=== PATIENT | female | born 1985 | race Caucasian/White ===

== ENCOUNTER → 2016-08-30 | Outpatient (CLI) | payer BC ==
--- NOTE | 2016-08-30 09:31 | US ---
EXAMINATION TYPE: US abdomen complete DATE OF EXAM: 08/30/2016 7:41 AM COMPARISON: NONE CLINICAL HISTORY: R10.13 ABD PAIN RLQ. Possible hernia noted RLQ per patient as she feels palpable pascual mp RLQ which protrudes outward at all times. EXAM MEASUREMENTS: Liver Length: 16.0 cm Gallbladder Wall: 0.2 cm CBD: 0.2 cm Spleen: 10.5 cm Right Kidney: 11.7 x 5.5 x 4.6 cm Left Kidney: 12.2 x 6.1 x 5.4 cm Pancreas: hyperechoic Liver: heterogeneous Gallbladder: full of shadowing stones Evidence for sonographic Teresa's sign: yes CBD: wnl Spleen: wnl Right Kidney: wnl Left Kidney: wnl Upper IVC: wnl Abd Aorta: wnl RLQ: at patient's c/o pain is interrupted fascial line with possible bowel noted anterior to fascial line when evaluated in supine and upright position. RLQ area was also compared to left side where fas inna appears uninterrupted on image. IMPRESSION: 1. Suspected herniation anterior wall right inguinal region containing a loop of bowel. 2. Gallstones. Correlate for acute cholecystitis. A positive Teresa sign was present during this exam .
== END | disposition home or self-care (01) ==
LOC: RADUSWWP 06:52
PROVIDERS: ATTEND Family Medicine
DX: K80.20 Calculus of gallbladder without cholecystitis without obstruction (principal)
CPT/HCPCS: 76700

== ENCOUNTER → 2020-04-13 | Outpatient (CLI) | payer BC ==
[2020-04-13 11:28] LABS: Basophils % (A) 0 %; Eosinophils # (A) 0.2 k/uL (0-0.7); Eosinophils % (A) 3 %; HGB 14.4 gm/dL (11.4-16.0); Lymphocytes # (A) 2.2 k/uL (1.0-4.8); Lymphocytes % (A) 34 %; MCH 29.9 pg (25.0-35.0); MCHC 31.4 g/dL (31.0-37.0); Mean Platelet Volume 7.7; Monocytes # (A) 0.4 k/uL (0-1.0); Monocytes % (A) 7 %; Neutrophils # (A) 3.6 k/uL (1.3-7.7); Neutrophils % (A) 54 %; Platelet Count 245 k/uL (150-450); RBC 4.84 m/uL (3.80-5.40); WBC 6.6 k/uL (3.8-10.6)
[2020-04-13 11:39] LABS: African American GFR (CKD) >90 (>60 ml/min/1.73 sqM); Anion Gap 4 mmol/L; Blood Urea Nitrogen 15 mg/dL (7-17); Carbon Dioxide 29 mmol/L (22-30); Chloride 108 mmol/L (98-107); Glucose 92 mg/dL (74-99); Non-African American GFR(CKD) >90 (>60 ml/min/1.73 sqM); Potassium 4.8 mmol/L (3.5-5.1); Sodium 141 mmol/L (137-145)
== END | disposition home or self-care (01) ==
LOC: LABPAT 10:22
PROVIDERS: ATTEND Obstetrics & Gynecology
DX: Z01.818 Encounter for other preprocedural examination (principal)
CPT/HCPCS: 36415; 80048; 85025; 86850; 86900; 86901

== ENCOUNTER 2020-04-19 05:53 | Observation (INO) | payer BC, OTHER ==
[2020-04-14 11:17] VITALS: BMI 39.5
[~2020-04-19 05:53] MED LIST: DEXAMETHASONE SOD PHOSPHATE 4 MG/ML 1 ML VIAL IV ONE; LACTATED RINGERS 1,000 ML IV SCH; LIDOCAINE 1% (10MG/ML) FOR IV START INTRADERMA PRN; ONDANSETRON 4 MG/2 ML VIAL IVP ONE; SCOPOLAMINE 1.5MG/72HR PATCH TRANSDERM ONE
[2020-04-19] MEDS ORDERED: MIDAZOLAM 2 MG/2 ML VIAL IV ONE (06:45)
--- NOTE | 2020-04-19 06:58 | P.HPOB ---
History of Present Illness H&P Date: 04/19/20 Chief Complaint: Dysmenorrhea, menorrhagia 35-year-old presents for total laparoscopic hysterectomy with da Mary, possible total abdominal hysterectomy with bilateral salpingo-oophorectomy. She's been suffering with very painful and heavy periods for a few years now. She did have an ablation but this was unsuccessful. Review of Systems All systems: negative Constitutional: Denies chills, Denies fever Eyes: denies blurred vision, denies pain Ears, nose, mouth and throat: Denies headache, Denies sore throat Cardiovascular: Denies chest pain, Denies shortness of breath Respiratory: Denies cough Gastrointestinal: Denies abdominal pain, Denies diarrhea, Denies nausea, Denies vomiting Genitourinary: Denies dysuria, Denies hematuria Musculoskeletal: Denies myalgias Integumentary: Denies pruritus, Denies rash Neurological: Denies numbness, Denies weakness Psychiatric: Denies anxiety, Denies depression Endocrine: Denies fatigue, Denies weight change Past Medical History Past Medical History: No Reported History Additional Past Medical History / Comment(s): high blood pressure during 15 yrs ago, hx hiatal hernia, endometrioisi, cysts on uterus History of Any Multi-Drug Resistant Organisms: None Reported Past Surgical History: Section, Cholecystectomy, Uterine Ablation Additional Past Surgical History / Comment(s): pilonidial cysts x2 Past Anesthesia/Blood Transfusion Reactions: Previous Problems w/ Anesthesia, Motion Sickness, Postoperative Nausea & Vomiting (PONV) Additional Past Anesthesia/Blood Transfusion Reaction / Comment(s): "confused and out if it coming out the last surgery" Smoking Status: Current every day smoker - Past Family History Mother Family Medical History: No Reported History Medications and Allergies Home Medications Medication Instructions Recorded Confirmed Type Ibuprofen [Motrin] 800 mg PO Q8H PRN 04/14/20 04/14/20 History Allergies Allergy/AdvReac Type Severity Reaction Status Date / Time No Known Allergies Allergy Verified 04/19/20 06:12 Exam Osteopathic Statement: *. No significant issues noted on an osteopathic structural exam other than those noted in the History and Physical/Consult. Heart: Regular rate and rhythm Lungs: Clear to auscultation bilaterally Abdomen: Soft, nontender Extremities: Negative Homans sign Assessment and Plan (1) Dysmenorrhea Current Visit: Yes Status: Acute Code(s): N94.6 - DYSMENORRHEA, UNSPECIFIED SNOMED Code(s): 532564496 (2) Menorrhagia Current Visit: Yes Status: Acute Code(s): N92.0 - EXCESSIVE AND FREQUENT MENSTRUATION WITH REGULAR CYCLE SNOMED Code(s): 329796946 Plan: 1. Total laparoscopic hysterectomy using da Mary, diagnostic cystoscopy. Possible total abdominal hysterectomy and bilateral salpingo-oophorectomy.
[2020-04-19] MEDS ORDERED: KETOROLAC 15 MG/ML 1 ML VIAL ONE (07:14)
[2020-04-19] MEDS ORDERED: PROPOFOL 10 MG/ML 20 ML VIAL IV ONE (07:14)
[2020-04-19] MEDS ORDERED: LIDOCAINE 1% INJ 10MG/ML (20 ML MDV) ONE (07:14)
[2020-04-19] MEDS ORDERED: GLYCOPYRROLATE 0.2 MG/ML 2 ML VIAL ONE (07:14)
[2020-04-19] MEDS ORDERED: fentaNYL (PF) 50 MCG/ML 2 ML AMP ONE (07:14)
[2020-04-19] MEDS ORDERED: ROCURONIUM 10 MG/ML (10 ML VIAL) IV ONE (07:14)
[2020-04-19] MEDS ORDERED: NEOSTIGMINE 1 MG/ML 10 ML VIAL ONE (07:14)
[2020-04-19] MEDS ORDERED: SUCCINYLCHOLINE CHLORIDE VIAL 200 MG/10 ML VIAL IV ONE (07:14)
[2020-04-19] MEDS ORDERED: ONDANSETRON 4 MG/2 ML VIAL ONE (07:14)
[2020-04-19] MEDS ORDERED: MIDAZOLAM 2 MG/2 ML VIAL ONE (07:14)
[2020-04-19] MEDS ORDERED: BUPIVACAINE (PF) 0.25% 30 ML VIAL SQ ONE ×2 (07:43→08:40)
--- NOTE | 2020-04-19 09:06 | P.OP ---
Date of Procedure: 04/19/20 Preoperative Diagnosis: 1. Dysmenorrhea 2. Menorrhagia Postoperative Diagnosis: 1. Dysmenorrhea 2. Menorrhagia 3. Evidence of endometriosis 4. Right endometrioma 5. Adhesions in the posterior cul-de-sac Procedure(s) Performed: Total laparoscopic hysterectomy and bilateral salpingectomy using da Mary, diagnostic cystoscopy Anesthesia: JEWELL Surgeon: Henrietta Ramírez Shift Coordinator #1: Hector Robles Estimated Blood Loss (ml): 50 IV fluids (ml): 500 Urine output (ml): 100 Pathology: other (Uterus, cervix, bilateral fallopian tubes and a segment of the right ovary) Condition: stable Disposition: PACU Operative Findings: Uterus sounded to 9 cm, cervix was 3.5 cm, adhesions in the posterior cul-de-sac, the ovaries were stuck to the back part of the uterus, hydrosalpinx. Description of Procedure: Patient taken the operating room where general anesthesia was obtained without difficulty. She is prepped and draped in normal sterile fashion dorsal lithotomy position, legs placed in the Cody stirrups. Weighted speculum placed in the vagina and the anterior lip the cervix was grasped with single-tooth tenaculum. The uterus sounded to 9 cm and the cervix diameter was 3.5 cm. The appropriate manipulator tip and ring were placed on the Farhana manipulator. The Farhana manipulator was then placed in the uterus. Ott catheter was also placed. Attention was then turned to the abdomen and gloves were changed. A 5 mm supraumbilical incision was made the scalpel and a 5 mm optical trocar was placed under direct visualization. 10 cm to the right of this and 2 cm down a 5 mm incision was made and 8 mm da Mary port was placed under direct visualization. Same measurements on the opposite side of the patient's abdomen, the 5 mm incision was made and 8 mm da Mary port was placed under direct visualization. In the left upper quadrant a 10 mm incision was made and a 10 mm optical trocar was placed under direct visualization. The 5 mm optical trocar was then replaced with the 8 mm da Mary camera port. The robot was docked on patient's right side. The camera was introduced and then the monopolar curved scissor and [place] bipolar placed under direct visualization. I broke scrub and went to the physician console. There were adhesions in the posterior cul-de-sac, the ovaries were stuck to the back part of the uterus, hydrosalpinx and possibly hematosalpinx noted. The filmy adhesions were taken down on the left side. The left mesosalpinx was cauterized and cut to free the left fallopian tube. The left uterine-ovarian ligament was cauterized with the M [employer] bipolar and cut with monopolar curved scissors. The left round ligament was cauterized with the [place] bipolar and cut with monopolar curved scissors. The posterior leaf of the broad ligament was taken down using the monopolar curved scissors. Anterior leaf of the broad ligament was then taken down using the monopolar curved scissors. The uterine artery was cauterized with the [place] bipolar and cut with monopolar curved scissors. The bladder flap was then started using the monopolar curved scissors. Attention was then turned to the right side of the patient's anatomy and the right mesosaplinx was cauterized with the [place] bipolar and cut with monopolar curved scissors to free this fallopian tube. The right utero-ovarian ligament was cauterized and cut. This was done carefully along the posterior edge of the uterus to free the ovary from the uterus itself. The right round ligament was cauterized with the [place] bipolar and cut with monopolar curved scissors. Posterior leaf of the broad ligament was taken down using the monopolar curved scissors and the anterior leaf was taken down using the monopolar curved scissors. The uterine artery was cauterized the [place] bipolar cut with monopolar curved scissors. The bladder flap was then finished on this side. Anterior colpotomy was made using the monopolar curved scissors. The rest of the uterus was from the vaginal cuff by following the ring around with the monopolar curved scissors through the uterosacral ligaments back to the anterior portion. Once the uterus and cervix were amputated they were pulled through the vaginal cuff. Hemostasis was assured. The instruments were changed for the Cardier forcep and the delaney suture cut. The vaginal cuff was then closed using 2-O stratafix barbed suture in a running fashion. Hemostasis was again assured and the pelvis was irrigated. All instruments were removed from the abdomen and the robot was undocked. I scrubbed back in to perform a cystoscopy. There were jets from both ureteral orifices. The abdominal incisions were closed with 4-0 Vicryl in a subcuticular fashion. Patient tolerated the procedure well, sponge and instrument counts correct 2 and she was taken to recovery room in stable condition condition
[2020-04-19] MEDS: HYDROmorphone 0.5 MG/0.5 ML SYRINGE IVP PRN ×3 (09:09→10:11)
[2020-04-19] MEDS ORDERED: MEPERIDINE 50 MG/ML SYRINGE IVP ONE ×3 (09:35→09:44)
[2020-04-19] MEDS ORDERED: LACTATED RINGERS 1,000 ML IV ONE ×2 (10:11)
[2020-04-19] MEDS ORDERED: ONDANSETRON 4 MG/2 ML VIAL IVP PRN (10:59)
[2020-04-19] MEDS ORDERED: METOCLOPRAMIDE 5 MG/ML 2 ML VIAL IVP PRN (10:59)
[2020-04-19] MEDS ORDERED: IBUPROFEN 600 MG TAB PO PRN (10:59)
[2020-04-19] MEDS ORDERED: Acetaminophen-Codeine 300-30mg TAB PO PRN ×2 (10:59)
[2020-04-19] MEDS ORDERED: ZOLPIDEM 5 MG TAB PO PRN (10:59)
[2020-04-19] MEDS ORDERED: diphenhydrAMINE 50 MG/ML 1 ML VIAL IVP PRN (10:59)
[2020-04-19] MEDS: HYDROcodone/APAP 7.5-325MG 1 EACH TAB PO PRN ×2 (15:10→23:38)
[2020-04-19] MEDS: SIMETHICONE 80 MG CHEWABLE PO PRN ×2 (16:02→19:59)
[2020-04-19] MEDS: SENNOSIDES-DOCUSATE SODIUM 1 EACH TAB PO SCH ×2 (16:15→19:59)
[2020-04-19 16:18] VITALS: TEMP 98.2
[2020-04-19] MEDS ORDERED: HYDROmorphone 1 MG/ML 1 ML SYRINGE IVP STA (17:10)
[2020-04-19] MEDS ORDERED: ALPRAZolam 0.5 MG TAB PO STA (17:55)
[2020-04-19] MEDS: KETOROLAC 15 MG/ML 1 ML VIAL IVP PRN (19:59)
[2020-04-19 23:42] VITALS: PULSE 63; RESP 17
[2020-04-20 00:21] VITALS: BP 137/86
[2020-04-20] MEDS: KETOROLAC 15 MG/ML 1 ML VIAL IVP PRN (04:12)
--- NOTE | 2020-04-20 06:51 | P.DS ---
Providers Date of admission: 04/19/20 23:59 Expected date of discharge: 04/20/20 Attending physician: Henrietta Ramírez Primary care physician: [place] - Discharge Diagnosis(es) (1) Dysmenorrhea Current Visit: Yes Status: Resolved (2) Menorrhagia Current Visit: Yes Status: Resolved (3) History of robot-assisted laparoscopic hysterectomy Current Visit: Yes Status: Acute Hospital Course: Patient presented for [facility] with da Mary and diagnostic cystoscopy. Adrianna this procedure without complication. Her stop operative course was uncomplicated. She did have a panic attack and I did give her 0.5 mg of Xanax once and the recovery period. Her pain is well-controlled with [place] and Motrin. She is ambulating voiding without difficulty, passing flatus and tolerating regular diet. Her incisions are clean, dry, intact. She'll be discharged home postoperative day #1 in stable condition to follow-up with me in 3 weeks. Plan - Discharge Summary Discharge Rx Participant: Yes New Discharge Prescriptions: New RX: Ibuprofen [Motrin] 600 mg PO Q6HR PRN #30 tab PRN Reason: Mild Discomfort RX: HYDROcodone/APAP 7.5-325MG [[place] 7.5-325] 1 each PO Q6H PRN #12 tab PRN Reason: Pain No Action Ibuprofen [Motrin] 800 mg PO Q8H PRN PRN Reason: Pain Discharge Medication List Ibuprofen [Motrin] 800 mg PO Q8H PRN 04/14/20 [History] RX: HYDROcodone/APAP 7.5-325MG [[place] 7.5-325] 1 each PO Q6H PRN #12 tab 04/20/20 [Rx] RX: Ibuprofen [Motrin] 600 mg PO Q6HR PRN #30 tab 04/20/20 [Rx] Follow up Appointment(s)/Referral(s): Henrietta Ramírez DO [Doctor of Osteopathic Medicine] - 3 Weeks Patient Instructions/Handouts: *Surgery [facility] - Scopalamine Patch Instructions Discharge Disposition: HOME SELF-CARE
[2020-04-20 07:17] LABS: Basophils % (A) 0 %; Eosinophils # (A) 0.2 k/uL (0-0.7); Eosinophils % (A) 2 %; HCT 39.3 % (34.0-46.0); HGB 12.8 gm/dL (11.4-16.0); Lymphocytes % (A) 17 %; MCH 30.7 pg (25.0-35.0); MCHC 32.6 g/dL (31.0-37.0); MCV 94.2 fL (80.0-100.0); Mean Platelet Volume 7.9; Monocytes # (A) 0.6 k/uL (0-1.0); Monocytes % (A) 5 %; Neutrophils # (A) 8.9 k/uL (1.3-7.7); Neutrophils % (A) 75 %; Platelet Count 194 k/uL (150-450); RBC 4.18 m/uL (3.80-5.40); RDW 12.9 % (11.5-15.5); WBC 11.8 k/uL (3.8-10.6)
[2020-04-20] MEDS: HYDROcodone/APAP 7.5-325MG 1 EACH TAB PO PRN (08:00)
== END 2020-04-20 09:55 | disposition home or self-care (01) ==
LOC: OR 05:53 → 4FBP 09:23 → OR 23:58 → 4FBP 23:59
PROVIDERS: ADMIT Obstetrics & Gynecology; ATTEND Obstetrics & Gynecology
DX: N80.0 Endometriosis of uterus (principal); F41.0 Panic disorder [episodic paroxysmal anxiety]; F17.210 Nicotine dependence, cigarettes, uncomplicated; Z90.49 Acquired absence of other specified parts of digestive tract; Z79.1 Long term (current) use of non-steroidal anti-inflammatories (NSAID)
CPT/HCPCS: 58571; S2900; 81025; 85025; 86850; 86900; 86901; 88307